=== PATIENT | female | born 1970 | race Caucasian/White ===

== ENCOUNTER 2016-09-01 13:19 | Emergency (ER) | payer OTHER ==
[2016-09-01 13:24] VITALS: BP 201/104; BMI 26.9
--- NOTE | 2016-09-01 13:42 | DR.GENAD ---
HPI - PCP Primary Care Physician: DAVID - Complaint/Symptoms Chief Complaint Doctors Comments: No fever, no drainage, no erythema Chief Complaint:: PT. C/O TOP GUM BEING SORE FOR 2 DAYS AND SHE WAS UNABLE TO PUT HER TOP DENTURES IN. PT. STATES SHE NOTICED A KNOT ON HER TOP GUM WHICH HAS EXPANDED UPWARDS TOWARDS LIP AND LEFT CHEEK. - Nurses notes reviewed Nurses Notes Review: Yes - Source History Provided: Patient - Mode of Arrival Mode of Arrival: Ambulatory - Timing Onset of Chief Complaint: 08/30/16 Came on: Gradually - Duration Duration: Constant How lon Duration: Days - Location Location: upper gum - Severity Severity: Moderate - Modifying Factors Worsens:: palpation - Associated Signs and Symptoms Associated Signs and Symptoms: none PMH - PMH Past Medical History: Yes Past Medical History: Arthritis, Hypertension Past Medical History Comment: PULMONARY ARTERIAL HTN, CARPAL TUNNEL Past Surgical History: Yes Surgical History: , Hysterectomy - Family History History of Family Medical Conditions: Yes Family Medical History: Diabetes Mellitus, Cancer, Hypertension - Social History Does patient currently use any type of tobacco product: Yes Have you used tobacco products in the last 12 months: Yes Type of Tobacco Use: Cigarettes How many years tobacco product used: 30 Does any household member use tobacco: No Alcohol Use: Occasionally Do you use any recreational Drugs:: No Lives With: Family Lives Where: Home - infectious screening In the last 2 months have you had wt loss of >10#?: NO Have you had fever, night sweats or hemotysis?: No Have you traveled outside the country in the last 6 months?: No Isolation: Standard PE - Vital Signs Vitals: Temperature 98 F Pulse Rate 92 Respiratory Rate 17 Blood Pressure 201/104 O2 Sat by Pulse Oximetry 99 - Diagnosis Discharge Problem: Gingivitis - Discharge Plan Condition: Stable Prescriptions: Amoxicillin 250 mg PO TID #30 cap Ibuprofen [Motrin Tab 800 mg] 800 mg PO Q8H PRN #30 tab PRN Reason: Pain/Inflammation - Follow ups/Referrals Follow ups/Referrals: JORDYN HERNANDEZ [Primary Care Provider] - 3 days - Instructions
== END 2016-09-01 13:54 | disposition home or self-care (01) ==
LOC: ER 13:28
DX: K05.00 Acute gingivitis, plaque induced (principal)
CPT/HCPCS: 99281; 99282